=== PATIENT | female | born 1940 | race Caucasian/White ===

== ENCOUNTER 2016-12-01 21:42 | Emergency (ER) | payer MEDICARE ==
[~2016-12-01] VITALS: Ht 152.4 cm; Wt 104.5 kg
[~2016-12-01 21:42] MED LIST: ALDACTONE 25MG25 M1 PO; ASPIRIN E.C. 8181 MG PO; ATIVAN 0.50.5 MG/TAB PO; CIPRO 500MG TA500 MG PO; COZAAR 50MG50 MG/TAB PO; Cordarone PO; FLAGYL500 MG PO; LEVAQUIN 5500 MG/TA1 PO; NORCO 325 MG-51 TAB PO; OMNICEF 300MG300 MG PO; RT Duoneb Neb Soln IH; TAMIFLU 75MG75 MG PO; TOPROL XL 50MG50 MG PO; ULTRAM 50MG TAB50 MG PO; VESICARE10 MG PO; ZOFRAN 4MG T4 MG/TAB PO; ZOFRAN ODT4 MG PO; [UNRECOGNIZED DRUG - OTHER]; [UNRECOGNIZED DRUG - REMARK]
[2016-12-01 22:28] LABS: BASO # 0.1 (0.0-0.2); BASO % 0.6 % (0.0-2.0); EOS # 0.3 (0.0-0.7); EOS % 2.2 % (0-4.0); GRAN # 7.8 (1.4-6.5); HEMATOCRIT 44.2 % (37.0-47.0); HEMOGLOBIN 13.9 g/dl (12.5-16.0); LYMPH # 2.8 (1.2-3.4); LYMPH % 23.1 % (20.0-51.0); MEAN CELL VOLUME 90 fl (80.0-100.0); MEAN CORPUSCULAR HEMOGLOBIN 28 pg (27.0-31.0); MEAN CORPUSCULAR HGB CONC 31 g/dl (33.0-37.0); MEAN PLATELET VOLUME 10.1 fl (7.4-10.4); MONO # 1.1 (0.1-0.6); MONO % 8.9 % (1.7-9.3); PLATELET COUNT 265 K/mm3 (130-400); REDCELL DISTRIBUTION WIDTH-CV 14.3 % (11.5-14.5); WHITE BLOOD COUNT 12.1 K/mm3 (4.8-10.8)
[2016-12-01 22:37] LABS: PH 5 (5-8); URINE APPEARANCE Cloudy; URINE BILIRUBIN Negative (NEGATIVE); URINE BLOOD Negative (NEGATIVE); URINE COLOR Yellow; URINE GLUCOSE Negative (NEGATIVE); URINE KETONE Negative (NEGATIVE); URINE UROBILINOGEN Negative (NEGATIVE)
[2016-12-01 22:38] LABS: SQUAMOUS EPITHELIAL 0-2 /hpf; URINE RBC None Seen /hpf
[2016-12-01 22:39] LABS: URINE BACTERIA Occasional /hpf; URINE WBC 0-2 /hpf
[2016-12-01 23:07] LABS: ADJUSTED CALCIUM 9.4 mg/dL (8.4-10.2); ALBUMIN 4.3 gm/dL (3.5-5.0); BILIRUBIN,TOTAL 0.7 mg/dL (0.0-1.0); CALCIUM 9.6 mg/dL (8.4-10.2); CREATININE, serum 0.87 mg/dL (0.52-1.25); POTASSIUM 4.4 mmol/L (3.4-5.0); TOTAL PROTEIN 8.1 gm/dL (6.4-8.2)
[2016-12-01] MEDS ORDERED: CIPRO 500MG TA500 MG PO (23:15)
[2016-12-01 23:31] VITALS: BP 190/99; PULSE 80; TEMP 97.5
[2016-12-03] MEDS ORDERED: OMNICEF 300MG300 MG PO (15:05)
== END 2016-12-01 23:50 | disposition home or self-care (01) ==
LOC: COL.ER 21:42
PROVIDERS: Emergency Medicine
DX: N10 Acute pyelonephritis (principal)
CPT/HCPCS: J1170

== ENCOUNTER → 2017-11-17 | Emergency (ER) | payer MEDICARE ==
[~2017-11-17] VITALS: Ht 165.1 cm; Wt 93.2 kg
[~2017-11-17] MED LIST changes: +ASPIRIN 81M81 MG/TA2 PO; +HCTZ12.5TAB PO; +LIPITOR20 MG PO; +MILK OF MA400 MG/52 PO; +PROTONIX20 MG PO; +TOPROL XL 25MG25 MG PO; +TYLENOL SU650 MG/SUP RC; +XARELTO20 MG PO; +ZESTRIL 10MG10 MG PO
[2017-11-17 15:21] VITALS: TEMP 97
[2017-11-17 15:39] LABS: BASO % 0.4 % (0.0-2.0); EOS # 0.3 (0.0-0.7); EOS % 2.3 % (0-4.0); GRAN # 7.5 (1.4-6.5); GRAN % 65.5 % (42.2-75.2); HEMATOCRIT 42.3 % (37.0-47.0); HEMOGLOBIN 13.4 g/dl (12.5-16.0); LYMPH # 2.6 (1.2-3.4); LYMPH % 23.1 % (20.0-51.0); MEAN CELL VOLUME 90 fl (80.0-100.0); MEAN CORPUSCULAR HEMOGLOBIN 29 pg (27.0-31.0); MEAN CORPUSCULAR HGB CONC 32 g/dl (33.0-37.0); MONO # 0.9 (0.1-0.6); MONO % 8.3 % (1.7-9.3); PLATELET COUNT 315 K/mm3 (130-400); RED BLOOD COUNT 4.68 M/mm3 (4.10-5.30); WHITE BLOOD COUNT 11.4 K/mm3 (4.8-10.8)
[2017-11-17 15:49] LABS: ADJUSTED CALCIUM 9.7 mg/dL (8.4-10.2); ALBUMIN 3.9 gm/dL (3.5-5.0); BILIRUBIN,TOTAL 0.5 mg/dL (0.0-1.0); CALCIUM 9.6 mg/dL (8.4-10.2); CREATININE, serum 1.05 mg/dL (0.52-1.25); POTASSIUM 4.3 mmol/L (3.4-5.0); TOTAL PROTEIN 7.1 gm/dL (6.4-8.2)
[2017-11-17 15:52] LABS: INR 2.3 (0.8-3.0)
[2017-11-17 16:18] LABS: THYROID STIMULATING HORMONE 2.96 uIU/mL (0.465-4.680)
[2017-11-17 17:04] VITALS: BP 120/72; PULSE 150
== END ==
LOC: COL.ER 15:19
PROVIDERS: Emergency Medicine
DX: I48.92 Unspecified atrial flutter (principal); Q21.1 Atrial septal defect; I48.91 Unspecified atrial fibrillation; J44.9 Chronic obstructive pulmonary disease, unspecified; I10 Essential (primary) hypertension; Z86.73 Personal history of transient ischemic attack (TIA), and cerebral infarction without residual deficits; Z79.82 Long term (current) use of aspirin
CPT/HCPCS: J7030; J7050

== ENCOUNTER 2018-02-19 11:40 | Emergency (ER) | payer MEDICARE ==
[~2018-02-19] VITALS: Ht 154.9 cm; Wt 86.4 kg
[2018-02-19 11:43] VITALS: TEMP 97
[2018-02-19 12:23] LABS: BASO % 0.4 % (0.0-2.0); EOS # 0.1 (0.0-0.7); EOS % 0.9 % (0-4.0); GRAN # 9.1 (1.4-6.5); GRAN % 79.7 % (42.2-75.2); LYMPH # 1.2 (1.2-3.4); LYMPH % 10.9 % (20.0-51.0); MEAN CELL VOLUME 76 fl (80.0-100.0); MEAN CORPUSCULAR HGB CONC 27 g/dl (33.0-37.0); MONO # 0.9 (0.1-0.6); MONO % 7.7 % (1.7-9.3); PLATELET COUNT 317 K/mm3 (130-400); REDCELL DISTRIBUTION WIDTH-CV 17.3 % (11.5-14.5)
[2018-02-19 12:26] LABS: HEMATOCRIT 19.1 % (37.0-47.0); HEMOGLOBIN 5.1 g/dl (12.5-16.0); MEAN CORPUSCULAR HEMOGLOBIN 20 pg (27.0-31.0)
[2018-02-19 12:36] LABS: ALBUMIN 3.5 gm/dL (3.5-5.0); BILIRUBIN,TOTAL 0.4 mg/dL (0.0-1.0); C-REACTIVE PROTEIN 0.7 mg/dL (0.0-0.9); CALCIUM 8.7 mg/dL (8.4-10.2); CREATININE, serum 1.62 mg/dL (0.52-1.25); POTASSIUM 3.7 mmol/L (3.4-5.0); TOTAL PROTEIN 6.4 gm/dL (6.4-8.2)
[2018-02-19] MEDS ORDERED: LOPRESSOR 550 MG/TAB PO (13:06)
[2018-02-19] MEDS ORDERED: PACERONE200 MG PO (13:08)
[2018-02-19] MEDS ORDERED: MEVACOR 20M20 MG/TAB PO (13:08)
[2018-02-19 13:15] LABS: INR 1.5 (0.8-3.0); PROTHROMBIN TIME 17.8 SECONDS (9.7-12.8)
[2018-02-19 13:18] LABS: PARTIAL THROMBOPLASTIN TIME 29.7 SECONDS (26.0-37.0)
[2018-02-19 14:19] VITALS: BP 115/48; PULSE 66
== END 2018-02-19 14:30 | disposition short-term general hospital (02) ==
LOC: COL.ER 11:40
PROVIDERS: Emergency Medicine
DX: S37.009A Unspecified injury of unspecified kidney, initial encounter (principal); D64.9 Anemia, unspecified; I10 Essential (primary) hypertension; J44.9 Chronic obstructive pulmonary disease, unspecified; I48.91 Unspecified atrial fibrillation; Z86.73 Personal history of transient ischemic attack (TIA), and cerebral infarction without residual deficits
CPT/HCPCS: J2405; J3010

== ENCOUNTER → 2018-04-18 | Outpatient (REF) ==
[~2018-04-18] MED LIST changes: +LOPRESSOR 550 MG/TAB PO; +MEVACOR 20M20 MG/TAB PO; +PACERONE200 MG PO
[2018-04-18 13:16] LABS: BASO # 0.1 (0.0-0.2); BASO % 0.5 % (0.0-2.0); EOS # 0.1 (0.0-0.7); GRAN # 7.7 (1.4-6.5); HEMATOCRIT 25.3 % (37.0-47.0); HEMOGLOBIN 7.1 g/dl (12.5-16.0); LYMPH % 10.1 % (20.0-51.0); MEAN CELL VOLUME 91 fl (80.0-100.0); MEAN CORPUSCULAR HEMOGLOBIN 25 pg (27.0-31.0); MEAN CORPUSCULAR HGB CONC 28 g/dl (33.0-37.0); MEAN PLATELET VOLUME 10.1 fl (7.4-10.4); MONO # 0.6 (0.1-0.6); PLATELET COUNT 407 K/mm3 (130-400); RED BLOOD COUNT 2.79 M/mm3 (4.10-5.30); REDCELL DISTRIBUTION WIDTH-CV 15.7 % (11.5-14.5)
[2018-04-18 13:28] LABS: ALBUMIN 3.6 gm/dL (3.5-5.0); BILIRUBIN,TOTAL 0.4 mg/dL (0.0-1.0); CALCIUM 9.3 mg/dL (8.4-10.2); CREATININE, serum 1.64 mg/dL (0.52-1.25); POTASSIUM 4.4 mmol/L (3.4-5.0); TOTAL PROTEIN 6.7 gm/dL (6.4-8.2)
== END ==
LOC: ZCOL.LAB 13:09
PROVIDERS: Nurse Practitioner Family
DX: Z01.89 Encounter for other specified special examinations (principal)

== ENCOUNTER 2018-07-24 23:35 | Observation (INO) | payer MEDICARE ==
[~2018-07-24] VITALS: Ht 147.3 cm; Wt 88.9 kg
[2018-07-24] MEDS ORDERED: MEVACOR 20M20 MG/TAB PO (23:59)
[2018-07-24] MEDS ORDERED: LOPRESSOR 225 MG/TAB PO (23:59)
[2018-07-25] MEDS ORDERED: NEXIUM 20MG20 MG PO (00:01)
[2018-07-25] MEDS ORDERED: PROFERRIN ES12 MG PO (00:02)
[2018-07-25 01:01] LABS: BASO % 0.4 % (0.0-2.0); EOS # 0.2 (0.0-0.7); EOS % 1.7 % (0-4.0); GRAN # 6.8 (1.4-6.5); GRAN % 71.8 % (42.2-75.2); HEMOGLOBIN 11.6 g/dl (12.5-16.0); LYMPH # 1.7 (1.2-3.4); LYMPH % 18.2 % (20.0-51.0); MEAN CELL VOLUME 89 fl (80.0-100.0); MEAN CORPUSCULAR HEMOGLOBIN 27 pg (27.0-31.0); MEAN CORPUSCULAR HGB CONC 31 g/dl (33.0-37.0); MEAN PLATELET VOLUME 10.4 fl (7.4-10.4); MONO # 0.7 (0.1-0.6); MONO % 7.7 % (1.7-9.3); PLATELET COUNT 305 K/mm3 (130-400); RED BLOOD COUNT 4.25 M/mm3 (4.10-5.30); REDCELL DISTRIBUTION WIDTH-CV 16.1 % (11.5-14.5)
[2018-07-25 01:11] LABS: BILIRUBIN,TOTAL 0.3 mg/dL (0.0-1.0); CALCIUM 8.9 mg/dL (8.4-10.2); CREATININE, serum 1.21 mg/dL (0.52-1.25); POTASSIUM 3.7 mmol/L (3.4-5.0); TOTAL PROTEIN 7.2 gm/dL (6.4-8.2)
[2018-07-25 01:14] LABS: MUCOUS Present /lpf; PH 5 (5-8); SQUAMOUS EPITHELIAL 0-2 /hpf; URINE APPEARANCE Hazy; URINE BACTERIA Rare /hpf; URINE BILIRUBIN Negative (NEGATIVE); URINE BLOOD 2+ (NEGATIVE); URINE COLOR Yellow; URINE GLUCOSE Negative (NEGATIVE); URINE KETONE Negative (NEGATIVE); URINE LEUKOCYTE ESTERASE 1+ (NEGATIVE); URINE NITRATE Positive (NEGATIVE); URINE PROTEIN(semi-quant) 1+ (NEGATIVE); URINE RBC 20-50 /hpf; URINE UROBILINOGEN Negative (NEGATIVE)
[2018-07-25 01:37] LABS: AMORPHOUS CRYSTAL Present /uL
[2018-07-25 01:42] LABS: COLLECTION METHOD CATHETER
[2018-07-25 02:16] VITALS: BP 164/55; PULSE 66; TEMP 98.1
[2018-07-25 04:18] VITALS: BP 148/67; PULSE 92; TEMP 98.3
[2018-07-25] MEDS ORDERED: ASPIRIN 81M81 MG/TA2 PO (05:39)
[2018-07-25 08:39] VITALS: BP 132/53; PULSE 86; TEMP 98.7
[2018-07-25] MEDS ORDERED: BACTRIM DS 8001 TAB PO (11:39)
[2018-07-25 11:51] VITALS: BP 135/55; PULSE 87; TEMP 98.5
[2018-07-25 15:21] VITALS: BP 111/47; PULSE 59; TEMP 98.3
== END 2018-07-25 18:13 | disposition home or self-care (01) ==
LOC: COL.ER 23:35 → JCC 07-25 01:41
PROVIDERS: Emergency Medicine
DX: M25.551 Pain in right hip (principal); I48.91 Unspecified atrial fibrillation; J44.9 Chronic obstructive pulmonary disease, unspecified; R29.6 Repeated falls; N32.81 Overactive bladder; F03.90 Unspecified dementia, unspecified severity, without behavioral disturbance, psychotic disturbance, mood disturbance, and anxiety; M79.7 Fibromyalgia; N39.0 Urinary tract infection, site not specified; I13.0 Hypertensive heart and chronic kidney disease with heart failure and stage 1 through stage 4 chronic kidney disease, or unspecified chronic kidney disease; N18.9 Chronic kidney disease, unspecified; I50.20 Unspecified systolic (congestive) heart failure; K21.9 Gastro-esophageal reflux disease without esophagitis; Z90.710 Acquired absence of both cervix and uterus; Z90.721 Acquired absence of ovaries, unilateral; Z90.49 Acquired absence of other specified parts of digestive tract; Z79.82 Long term (current) use of aspirin; Z88.5 Allergy status to narcotic agent; Z88.0 Allergy status to penicillin; Z87.891 Personal history of nicotine dependence; Z86.73 Personal history of transient ischemic attack (TIA), and cerebral infarction without residual deficits; Z82.49 Family history of ischemic heart disease and other diseases of the circulatory system
CPT/HCPCS: G0378; G8978-GP; G8979-GP; G8987-GO; G8988-GO; J7030

== ENCOUNTER 2018-07-28 20:52 | Emergency (ER) | payer MEDICARE ==
[~2018-07-28] VITALS: Ht 157.5 cm; Wt 65.9 kg
[~2018-07-28 20:52] MED LIST changes: +BACTRIM DS 8001 TAB PO; +LOPRESSOR 225 MG/TAB PO; +NEXIUM 20MG20 MG PO; +PROFERRIN ES12 MG PO
[2018-07-28 20:54] VITALS: TEMP 98.7
[2018-07-28 21:16] LABS: BASO % 0.5 % (0.0-2.0); EOS # 0.2 (0.0-0.7); EOS % 2.4 % (0-4.0); GRAN % 66.7 % (42.2-75.2); HEMOGLOBIN 10.5 g/dl (12.5-16.0); LYMPH # 1.6 (1.2-3.4); LYMPH % 21.4 % (20.0-51.0); MEAN CELL VOLUME 90 fl (80.0-100.0); MEAN CORPUSCULAR HEMOGLOBIN 27 pg (27.0-31.0); MEAN CORPUSCULAR HGB CONC 30 g/dl (33.0-37.0); MEAN PLATELET VOLUME 10.1 fl (7.4-10.4); MONO # 0.7 (0.1-0.6); MONO % 8.9 % (1.7-9.3); PLATELET COUNT 249 K/mm3 (130-400); RED BLOOD COUNT 3.85 M/mm3 (4.10-5.30); REDCELL DISTRIBUTION WIDTH-CV 15.9 % (11.5-14.5)
[2018-07-28 21:18] LABS: HEMATOCRIT 34.8 % (37.0-47.0)
[2018-07-28 21:28] LABS: ALBUMIN 3.5 gm/dL (3.5-5.0); BILIRUBIN,TOTAL 0.1 mg/dL (0.0-1.0); C-REACTIVE PROTEIN 0.6 mg/dL (0.0-0.9); CALCIUM 8.6 mg/dL (8.4-10.2); CREATININE, serum 1.45 mg/dL (0.52-1.25); POTASSIUM 4.6 mmol/L (3.4-5.0); TOTAL PROTEIN 6.5 gm/dL (6.4-8.2)
[2018-07-28 22:01] VITALS: BP 153/58; PULSE 62
== END 2018-07-28 22:01 | disposition home or self-care (01) ==
LOC: COL.ER 20:52
PROVIDERS: Family Medicine
DX: S39.012A Strain of muscle, fascia and tendon of lower back, initial encounter (principal); I10 Essential (primary) hypertension; Z79.82 Long term (current) use of aspirin; W19.XXXA Unspecified fall, initial encounter

== ENCOUNTER → 2018-09-07 | Emergency (ER) | payer MEDICARE ==
[~2018-09-07] MED LIST changes: +CEFTIN500 MG PO
[2018-09-07 18:05] VITALS: TEMP 99
[2018-09-07 18:54] LABS: BASO % 0.4 % (0.0-2.0); EOS # 0.1 (0.0-0.7); GRAN # 5.3 (1.4-6.5); GRAN % 73.9 % (42.2-75.2); HEMATOCRIT 38.7 % (37.0-47.0); HEMOGLOBIN 11.8 g/dl (12.5-16.0); LYMPH # 1.3 (1.2-3.4); LYMPH % 17.5 % (20.0-51.0); MEAN CELL VOLUME 92 fl (80.0-100.0); MEAN CORPUSCULAR HEMOGLOBIN 28 pg (27.0-31.0); MEAN CORPUSCULAR HGB CONC 31 g/dl (33.0-37.0); MONO # 0.5 (0.1-0.6); MONO % 7.1 % (1.7-9.3); PLATELET COUNT 241 K/mm3 (130-400); RED BLOOD COUNT 4.23 M/mm3 (4.10-5.30); REDCELL DISTRIBUTION WIDTH-CV 15.4 % (11.5-14.5)
[2018-09-07 19:04] LABS: ALBUMIN 3.9 gm/dL (3.5-5.0); BILIRUBIN,TOTAL 0.3 mg/dL (0.0-1.0); CALCIUM 8.8 mg/dL (8.4-10.2); CREATININE, serum 1.07 mg/dL (0.52-1.25); TOTAL PROTEIN 7.1 gm/dL (6.4-8.2)
[2018-09-07 19:08] LABS: COLLECTION METHOD CATHETER
[2018-09-07 19:23] LABS: MUCOUS Present /lpf; PH 5 (5-8); SQUAMOUS EPITHELIAL 0-2 /hpf; URINE APPEARANCE Hazy; URINE BACTERIA Rare /hpf; URINE BILIRUBIN Negative (NEGATIVE); URINE BLOOD 2+ (NEGATIVE); URINE COLOR Yellow; URINE GLUCOSE Negative (NEGATIVE); URINE KETONE Negative (NEGATIVE); URINE LEUKOCYTE ESTERASE 2+ (NEGATIVE); URINE NITRATE Positive (NEGATIVE); URINE PROTEIN(semi-quant) 1+ (NEGATIVE); URINE RBC 20-50 /hpf; URINE UROBILINOGEN Negative (NEGATIVE); URINE WBC 20-50 /hpf
[2018-09-07 20:39] VITALS: BP 173/77; PULSE 67
== END ==
LOC: COL.ER 18:04
PROVIDERS: Nurse Practitioner Primary Care
DX: N39.0 Urinary tract infection, site not specified (principal)
CPT/HCPCS: A4216; J0696; J1885; Q9967

== ENCOUNTER 2021-12-10 21:20 | Emergency (ER) | payer MEDICARE, MEDICAID ==
[~2021-12-10] VITALS: Ht 170.2 cm; Wt 86.4 kg
[~2021-12-10 21:20] MED LIST changes: +DECADRON6 MG PO; +RT Albuterol HFA MDI IH
[2021-12-10 21:25] VITALS: TEMP 98.1
[2021-12-10 22:07] LABS: BASO % 0.5 % (0.0-2.0); EOS # 0.1 K/mm3 (0.0-0.7); EOS % 2.2 % (0.0-4.0); GRAN # 4.2 K/mm3 (1.4-6.5); GRAN % 65.2 % (42.2-75.2); HEMATOCRIT 37.1 % (37.0-47.0); HEMOGLOBIN 11.9 g/dl (12.5-16.0); LYMPH # 1.3 K/mm3 (1.2-3.4); LYMPH % 20.8 % (20.0-51.0); MEAN CELL VOLUME 92 fl (80.0-100.0); MEAN CORPUSCULAR HEMOGLOBIN 30 pg (27-31); MEAN CORPUSCULAR HGB CONC 32 g/dl (33.0-37.0); MEAN PLATELET VOLUME 9.9 fl (7.4-10.4); MONO # 0.7 K/mm3 (0.1-0.6); PLATELET COUNT 188 K/mm3 (130-400); RED BLOOD COUNT 4.03 M/mm3 (4.10-5.30); REDCELL DISTRIBUTION WIDTH-CV 14.6 % (11.5-14.5)
[2021-12-10 22:25] LABS: ALBUMIN 3.6 gm/dL (3.4-4.8); BILIRUBIN,TOTAL 0.3 mg/dL (0.2-1.2); CALCIUM 8.8 mg/dL (8.4-10.2); CREATININE, serum 1.18 mg/dL (0.57-1.11); POTASSIUM 4.1 mmol/L (3.5-4.5); TOTAL PROTEIN 6.8 gm/dL (6.2-8.1)
[2021-12-11] MEDS ORDERED: CEPHALEXIN500 M1 PO (01:08)
[2021-12-11 01:43] VITALS: BP 193/132; PULSE 78
== END 2021-12-11 01:43 | disposition home or self-care (01) ==
LOC: COL.ER 21:20
PROVIDERS: Nurse Practitioner
DX: S62.304A Unspecified fracture of fourth metacarpal bone, right hand, initial encounter for closed fracture (principal); S02.81XA Fracture of other specified skull and facial bones, right side, initial encounter for closed fracture; F03.90 Unspecified dementia, unspecified severity, without behavioral disturbance, psychotic disturbance, mood disturbance, and anxiety; J44.9 Chronic obstructive pulmonary disease, unspecified; W19.XXXA Unspecified fall, initial encounter; Y92.129 Unspecified place in nursing home as the place of occurrence of the external cause
CPT/HCPCS: J0360; Q9967